=== PATIENT | male | born 1990 | race Caucasian/White ===

== ENCOUNTER 2016-12-27 22:42 | Emergency (ER) | payer OTHER ==
[~2016-12-27] VITALS: Ht 182.9 cm; Wt 90.9 kg
[2016-12-27 22:49] VITALS: BP 127/84; PULSE 72; RESP 16; O2SAT 95
--- NOTE | 2016-12-27 22:55 | ED.REPORT ---
HPI-Abd Pain M Under 38 Date of Service Dec 27, 2016 ED Provider: William Anne MD Pt is a 26 year old male who presents to the ED complaining of a painful bruise over his right flank onset yesterday. He noticed the bruise yesterday, but it became painful an hour ago. Pt states that he went to the bathroom, and that every time he tried to push, his pain increased. He does not recall any injury to his abdomen or recent excessive use of alcohol. He denies hematuria, melena, or bloody stools. Pt also reports having a random bruise appear to his right shoulder 3-4 days ago that has since resolved. He denies any family history of hemophilia, wearing a tight belt, or unusual bleeding from his gums while brushing his teeth. Nursing Notes Stated Complaint: STOMACH PAIN Chief Complaint: Male Abdominal Pain Nursing Notes Reviewed: Yes Allergies: Coded Allergies: No Known Allergies (Unverified , 12/27/16) General Time Seen by MD: 22:54 Chief Complaint Flank pain right Hx Obtained From: Patient Arrived By: Walk-in Sudden in Onset?: Yes Onset Occurred: 1 - 4 hours ago Quality: Painful Severity: Current: No pain currently Severity: Maximum: Moderate Recent Healthcare: No recent doctor visit, No recent hospitalization Similar Sx Previous: Yes Past Medical History Past Medical History Notes: PCP: Dr. Rodrigues in [place] Past Medical History Denies Past Surgical History [place] tooth extraction Social History Alcohol Use: "Social" Ambulatory Status Independent Review of Systems Bruising on right flank Old bruise on right shoulder onset 3-4 days ago GI: Denies: Bloody/tarry stool, Melena Male: Denies Hematuria Complete sys rev & neg: except as marked. Skin: Reports Unexplained bruises Physical Exam Initial Vital Signs Vital Signs (First) Date Time Temp Pulse Resp B/P Pulse Ox O2 Delivery O2 Flow Rate FiO2 12/27/16 22:49 36.4 72 16 127/84 95 Initial VS: Reviewed Head / Eyes: Atraumatic, Normocephalic Skin: Warm, Dry, No cyanosis Neurologic: Alert, Oriented, Nonfocal Psychiatric: Mood/affect normal, Behavior normal, Normal thought content General/Constitutional: Awake, Alert Respiratory / Chest: Atraumatic, Breath sounds NL, Breath sounds = bilat, No respiratory distress Cardiovascular: Heart rate NL, Regular rhythm, Heart sounds NL, No gallop, No murmurs, No rubs Abdomen: Soft, BS normoactive No significant tenderness to palpation Back: Full range of motion, Non-tender 6x3 cm triangular-shaped ecchymosis over right flank above iliac crest that he noticed 24 hours ago but denies any injury Upper Extremity / MS: Full range of motion, Neurologic intact, Vascular intact Bruise on right shoulder Interpretation & Diagnostics Urine dip: negative Lab Results Interpretation Result Diagram: 12/27/16 2317 12/27/16 2317 Test 12/27/16 23:02 12/27/16 23:17 Hold Urine Received (Received) White Blood Count 8.8th/mm3 (3.8-10.1) Red Blood Count 5.40mil/mm3 (4.40-5.80) Hemoglobin 15.7g/dL (13.8-17.2) Hematocrit 45.4% (41.0-50.0) Mean Corpuscular Volume 84.1fL (81-100) Mean Corpuscular Hemoglobin 29.1pg (27.0-35.0) Mean Corpuscular Hemoglobin Concent 34.6% (32.0-37.0) Red Cell Distribution Width 13.0% (12.3-15.4) Platelet Count 198bil/L (150-400) Neutrophils (%) (Auto) 42.6% (40-74) Lymphocytes (%) (Auto) 48.1% (14-46) Monocytes (%) (Auto) 6.7% (4-12) Eosinophils (%) (Auto) 2.0% (0-5) Basophils (%) (Auto) 0.5% (0-3) Prothrombin Time 10.6sec (8.1-12.5) Prothromb Time International Ratio 0.99ratio Sodium Level 141mEq/L (134-144) Potassium Level 3.8mEq/L (3.5-5.2) Chloride Level 104mEq/L (97-108) Carbon Dioxide Level 24mmol/L (18-29) Blood Urea Nitrogen 14mg/dL (6-20) Creatinine 1.00mg/dL (0.76-1.27) Estimat Glomerular Filtration Rate 95mL/min (>59) Glucose Level 106mg/dL (60-99) Calcium Level 9.2mg/dL (8.5-10.1) Magnesium Level 2.1mg/dL (1.6-2.6) Total Bilirubin 0.6mg/dL (0.0-1.2) Aspartate Amino Transf (AST/SGOT) 21U/L (0-50) Alanine Aminotransferase (ALT/SGPT) 23U/L (0-44) Alkaline Phosphatase 51U/L (25-150) Total Protein 7.3g/dL (6.4-8.4) Albumin 4.6g/dL (3.4-5.0) Lipase 35U/L (13-60) Hold Wheat Top Tube Received (Received) Re-Eval/Medical Decision Med Decision/Clinical Course Previously healthy and well-appearing 26-year-old with bruising on the lower right flank. This is a small bruise in the appearance is consistent with a minor injury. The patient does not recall having any injury. There is also an older bruise on his shoulder which she says also occurred spontaneously. His platelet count is normal. His INR is normal, he looks well and there is no history of coagulopathy nor other other findings to suggest coagulopathy. At this point we will reassure him and recommended he follow up with primary care Source of Hx: Old records Re-Evaluation/Progress #1: Time of Eval: 23:15 Patient Status: Condition improved Re-Evaluation/Progress Note: Pt rechecked. Performed physical exam. Re-Evaluation/Progress #2: Time of Eval: 00:24 Patient Status: Condition improved Re-Evaluation/Progress Note: Patient rechecked. Discussed plan for discharge. Patient understands and agrees with plan. F/U instructions and RTER warnings given. All questions addressed at this time. Counseled Regarding: Diagnosis, Lab results, Need for follow-up, When/why to return to ED Patient Discharge & Departure Primary Impression: Superficial bruising of abdominal wall Disposition: Home Discharge Condition All VS Reviewed: Yes Condition: Stable Additional Instructions: Your emergency department evaluation today including interview, examination, and lab work are reassuring. There was no dangerous cause for your symptoms at this time. Please call your primary care physician tomorrow in order to schedule a follow- up appointment for a recheck. Please return to the emergency department for increased breathing, fevers, increasing abdominal pain frequently vomiting or other new worrisome symptoms. Scribe Attestation Portions of this note were transcribed by Minal Mckenna. I, Dr. Anne, personally performed the history, physical exam and medical decision-making; I reviewed and confirmed the accuracy of the information in the transcribed note. William Anne MD Dec 27, 2016 22:55 Minal Mckenna Dec 27, 2016 22:59
[2016-12-27 23:20] LABS: BASOPHILS % (AUTO) 0.5 % (0-3); MONOCYTES % (AUTO) 6.7 % (4-12); Mean Corpuscular Hemoglobin 29.1 pg (27.0-35.0); Mean Corpuscular Volume 84.1 fL (81-100); NEUTROPHILS % (AUTO) 42.6 % (40-74); Platelet Count 198 bil/L (150-400)
[2016-12-27 23:36] LABS: INR 0.99 ratio
[2016-12-27 23:38] LABS: Magnesium 2.1 mg/dL (1.6-2.6)
[2016-12-28 00:38] VITALS: BP 123/84; PULSE 84; RESP 18; O2SAT 100
== END 2016-12-28 00:39 | disposition home or self-care (01) ==
LOC: SED 22:42
DX: S30.1XXA Contusion of abdominal wall, initial encounter (principal); S40.011A Contusion of right shoulder, initial encounter; X58.XXXA Exposure to other specified factors, initial encounter; Y93.89 Activity, other specified; Y99.8 Other external cause status; Y92.9 Unspecified place or not applicable